=== PATIENT | male | born 1960 | race Caucasian/White ===

== ENCOUNTER 2019-04-09 06:11 | Inpatient (IN) | payer OTHER, SELFPAY ==
[2019-04-03 07:30] VITALS: BMI 38.5
[2019-04-09] VITALS (21 sets, daily range): BP systolic 120–181; BP diastolic 59–102; PULSE 77–119; RESP 10–19; TEMP 36.1–37.6; O2SAT 89–97; BMI 37.2
--- NOTE | 2019-04-09 06:00 | DI.RAD.S_ITS ---
PROCEDURE: XR KNEE LT 1TO2V INDICATIONS: Post op total knee TECHNIQUE: 2 view(s) of the knee acquired. COMPARISON: None. FINDINGS: Bones: Patient is status post knee joint arthroplasty. Hardware components are in expected positions. Visualized bony structures are intact. Soft tissues: Overlying postoperative changes are noted. IMPRESSION: Normal alignment after left total knee arthroplasty. Dictated by: Nixon Neville M.D. on 04/09/2019 at 11:03 Approved by: Nixon Neville M.D. on 04/09/2019 at 11:03
[2019-04-09] MEDS: ACETAMINOPHEN 325 MG TABLET 975 MG PO ×2 (06:47→14:09)
[2019-04-09] MEDS: LACTATED RINGERS 1,000 ML 42 ML IV (06:47)
--- NOTE | 2019-04-09 07:43 | PM.PREOP ---
Pre-operative Note Interval Note History & Physical reviewed/Exam performed by Physician: Yes Changes to H&P: No
--- NOTE | 2019-04-09 07:44 | PM.OP.1 ---
Operative Date/Time/Diagnoses Date of procedure: 04/09/19 Time of procedure: 09:25 Pre-op diagnosis: Left knee osteoarthritis Post-op diagnosis: same Procedure & Clinicians Procedure: Left total knee replacement Same procedure as scheduled: Yes Indications: The patient has had progressively worsening left knee pain with radiographic changes consistent with arthritis. Non-operative management has failed and the patient has requested total knee replacement. The risks, benefits and alternatives to surgery were discussed with the patient prior to proceeding. Risks discussed included, but were not limited to, failure to relieve pain, stiffness, infection, nerve damage, deep venous thrombosis, pulmonary embolism, stroke, coma, heart attack, permanent paralysis and , as well as the potential need for eventual revision of the prosthetic. Surgeon: Oscar Lozano Pick Up: Sp [place] Click Yes if Unassisted: No Anesthesia Type: Local Operative Notes Findings: Tricompartmental osteoarthritis, most severe in the lateral compartment. Closure Type: primary Specimen(s): none sent Prosthetic devices, grafts, tissues, transplants, or devices: Implants used in this procedure were manufactured by the [employer] and included the BCS II Journey total knee replacement with a size 7 left Oxinium femoral component, a size 7 left non porous tibial base plate, a 9 mm cross-linked polyethylene tibial insert and a 38 mm oval Mame II patellar component. Applied: implant(s) Estimated Blood Loss (mL): 50 Blood products transfused: none Tourniquet time (min): 55 Procedure in detail: The patient was seen in the pre-operative area, where the left knee was identified as the operative site and this was marked with my initials. The patient received pre-operative antibiotics, and was taken to the operating room and placed on the operative table in the supine position. After satisfactory anesthesia, a multimedia author out? was performed. The left leg was encircled with a tourniquet about the proximal thigh, and the leg was prepared from the toes to the tourniquet with ChloroPrep in the usual fashion and draped through sterile drapes. The leg was elevated and exsanguinated with Eschmark bandage and the tourniquet inflated to 250 mmHg pressure. The knee was approached through an approximately 18 cm incision centered over the patella and carried into the knee through a medial parapatellar arthrotomy. The anterior osteophytes and soft tissues were removed. The rotational landmarks of [place]'s line and the transepicondylar axis were marked on the femur with electrocautery, and intramedullary guide holes for the femur and tibia were created. The distal femoral cut was made in 6 degrees of valgus using the intramedullary guide at the primary cut setting. The proximal tibial cut was then made using the intramedullary guide, taking 9 mm of bone off the less involved side. The extension gap was checked and the rotation of the femoral component confirmed with the gap balancing blocks. The anterior, posterior and chamfer cuts were then made. The posterior osteophytes and soft tissues were then removed. The posterior capsule was injected with part of a mixture of 60 ml 0.25% Marcaine mixed with 20 ml Exparel and 4 mg of morphine for post-operative pain control. The remainder of this mixture was injected into the capsule and subcutaneous tissues during cement curing. The tibia was prepared with the rotation set by an extra medullary guide. Trial tibial and femoral components were then placed and the intercondylar notch cut through the femoral trial. Range of motion was 0-135 degrees, with good stability throughout the range. The patella was then cut to accommodate the patellar prosthetic. There was no need for a lateral release. The trials were then removed, and the femoral hole plugged with a bone plug. The bone was prepared with pulsatile lavage, and dried with a sponge. Cement was applied and the final prosthetics placed. Excess cement was removed during and after cement curing. After confirming there was no extruded cement posteriorly, the final tibial insert was placed. The knee was copiously irrigated and the tourniquet deflated. Hemostasis was obtained. The capsule was closed with interrupted # 2 polyester sutures. The subcutaneous layer was closed with 3-0 Vicryl, and the skin with a running 3-0 V-Lock suture and SteriStrips. An Aquacel Ag dressing was applied and the patient was taken to recovery having tolerated the procedure well. Complications: none Post-operative Condition: stable Disposition: PACU Plan for aftercare: The patient will be maintained on a standard total knee replacement protocol with weight bearing as tolerated. The patient will receive aspirin and sequential compression devices for DVT prophylaxis. The patient will be discharged home when safe for the home environment.
[2019-04-09] MEDS: CEFAZOLIN 2 GM/100 ML FROZ.PIGGY IV (07:48)
--- NOTE | 2019-04-09 08:23 | SUR.OPER ---
Supine on padded OR bed. Pillow under head, arms secured on padded armboards <90 degree abduction. Safety belt across torso. Non-operative leg secured with tape over blanket over lower leg. Operative leg secured in DeMayo/Camacho positioner.
[2019-04-09] MEDS: BUPIVACAINE 0.25% W/ EPI 30 ML VIAL 60 ML INJ (08:30)
[2019-04-09] MEDS: TRANEXAMIC ACID 1,000 MG VIAL 1000 MG INJ ×2 (08:31→09:07)
[2019-04-09] MEDS: MORPHINE 4 MG/ML INJ INJ (08:31)
[2019-04-09] MEDS: BUPIVACAINE LIPOSOME 266 MG/20 ML VIAL INJ (08:31)
[2019-04-09] MEDS: hydrOXYzine pamoate 25 MG CAPSULE PO ×3 (10:21→20:08)
--- NOTE | 2019-04-09 11:03 | SUR.PHASEII ---
Assumed care from Jv. RN. Pt did voice to her that he wanted to stay over night. Dr. Lozano. in surgery. brought in at bedside, supportive. Pt placed on pulse ox- continuous. sats 89% on room air, placed on 2/l nasal cannula.
--- NOTE | 2019-04-09 12:21 | SUR.PHASEII ---
Dr Lozano to pt's bedside, pt now admitted. Attempted to wean off 02 and unable.
[2019-04-09] MEDS: OXYCODONE IR 5 MG TABLET PO (13:01)
[2019-04-09] MEDS: LACTATED RINGERS 1,000 ML 125 ML IV (13:03)
--- NOTE | 2019-04-09 13:42 | PC.NURSE ---
Day Shift- Report rec'd from FANTASMA Moreno in PACU at 1226. Pt arrived to unit room 210 at 1240 via bed. Oriented to call light, keeping pillow below knee not under. ICE pack X3 to left knee. Left knee aquacel dressing intact with 2 scant spot drainage to proximal and distal end of dressing, virginie wrap in place. CMS +, PPP. pt states knee feels slightly numb. On 1.5L NC, O2 sat 93%. After instructed and use of incentive spirometer, O2 sat increased to 98% on 1.5L NC. Bed alarm on, pt instructed to use call light for OOB assist.
[2019-04-09] MEDS: GABAPENTIN 300 MG CAPSULE PO ×2 (14:07→20:08)
--- NOTE | 2019-04-09 15:50 | PT.IIE ---
Current Diagnoses Unilateral primary osteoarthritis, left knee (04/09/19) Surgery Performed Operation Date: 04/09/19 07:45 Actual Procedures p Total Knee Arthroplasty(Left) - Oscar Lozano MD Surgical History (Last Updated 04/03/19 @ 08:19 by Lian Brown RN) H/O left wrist surgery (Acute) H/O vasectomy (Acute) History of ankle surgery (Acute ~1989) History of arthroscopy of left shoulder (Acute ~2003) History of arthroscopy of right shoulder (Acute ~2001) Hx of arthroscopy of left knee (Acute) Hx of arthroscopy of right knee (Acute) Hx of laminectomy (Acute ~2015) Hx of prostate biopsy (Acute) Hx of rhinoplasty (Acute) Hx of right knee surgery (Acute ~1975) Medical History (Last Updated 04/03/19 @ 08:19 by Lian Brown RN) Arthritis (Acute) Asthma (Acute) Enlarged prostate (Acute) Hearing impaired (Acute) HTN (hypertension) (Acute) Kidney stones (Acute) Osteoarthritis (Acute) Pneumonia (Acute) Physical Therapy Inpatient Evaluation/Re-Eval M1 PT/OT-IP Prior Functional Status Start: 04/09/19 17:19 Freq: NEEDED Status: Active Protocol: Document 04/09/19 15:50 AB (Rec: 04/09/19 17:47 AB [id number]) Medical Review Prior Functional Status Medical History Reviewed Yes Communication able to make needs known Mobility and Gait pt stated that he is independent with all mobilities and ambulation without AD Social History Household Members spouse,children Living Arrangements House Number of Floors (Floors) Two Floors Number of Stairs To Enter/Railing? 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 PT-IP Current Condition Start: 04/09/19 17:19 Freq: NEEDED Status: Active Protocol: Document 04/09/19 15:50 AB (Rec: 04/09/19 17:47 AB [id number]) Physical Therapy Current Condition Current Condition Evaluation Date 04/09/19 Treatment Diagnosis s/p L TKA; difficulty in walking Onset Date 04/09/2019 Weight Bearing Status Weight Bearing Status Weight Bear as Tolerated Allowed Weight Bearing Amount (enter % WBAT LLE or #) (%) M3 PT-IP Subjective Start: 04/09/19 17:19 Freq: NEEDED Status: Active Protocol: Document 04/09/19 15:50 AB (Rec: 04/09/19 17:47 AB [id number]) Subjective Physical Therapy Visit Type Type Initial Evaluation Visit Start Time 15:50 Visit Stop Time 16:27 Total Visit Minutes 37 Number of DIAMOND SORTER Visits 0 Physical Therapy Visit Comments Patient Comments pt agreeable to do PT Therapy Pain Assessment Pain When Pain Assessed At Rest Pain Present Pain Present Pain Reported Location left knee Intensity 8 Scale Used Numeric (1 - 10) Pain Management Techniques Re-positioning,Timing of Activity with Medications M4 PT-IP Mobility and Gait Start: 04/09/19 17:19 Freq: NEEDED Status: Active Protocol: Document 04/09/19 15:50 AB (Rec: 04/09/19 17:47 [id number]) PT-Bed Mobility Assessment Sit to Supine Sit to Supine Moderate Assistance,1 Person Assistance PT-Transfer Assessment Sit to and From Stand Sit to and from Stand Minimal Assistance,1 Person Assistance,Use of Upper Extremities Equipment Transfer Assistive Device Gait Belt,Front Wheeled Walker Orthotic/Prosthetic Devices or Brace: Yes Transfers Transfer Destination Bed,Chair,Toilet Transfer Technique ambulated using FWW Transfer Ability Level of Assist Minimal Assistance,1 Person Assistance,Use of Upper Extremities Comments Mobility Comments pt sitting on chair and agreeable to do PT. Checked BP: 163/112. informed nurse. pt requested to use the toilet first before getting back to bed. pt completed sit to stand min A and ambulated to the toilet using FWW ~ 20 ft min A and cues. pt was able to maintain standing using FWW for support CGA while using the toilet. pt ambulated towards the bed using FWW min A and cues. completed sit to supine mod A to elevate LLE up to bed. positioned pt in bed. call light and table placed within reach. Left pt with spouse in room. BP checked: 160/102. nurse informed. Gait Assessment Gait Gait Assistance Required: Minimum Assistance Distance (Feet) 20 Able to Maintain Weight Bearing Status Yes During Gait Assistive Devices Assistive Device Gait Belt,Front Wheeled Walker Orthotic/Prosthetic Devices or Brace: No Gait Deviations General Gait Pattern Antalgic,Decreased Stride Length,Decreased Feet Clearance Factors Limiting Gait Function Factors Limiting Gait Function Decreased Activity Tolerance, Decreased Strength,Limited Range of Motion,Pain,Poor Balance,Poor Safety Awareness Comments Gait Comments pls refer to mobility section for details PT-Balance Assessment Sitting Balance and Reactions Static Sitting Balance Ability Good Dynamic Sitting Balance Ability Good Standing Balance and Reactions Static Standing Balance Ability Fair Dynamic Standing Balance Ability Fair Device Used FWW M5 PT-IP Objective Assessments Start: 04/09/19 17:19 Freq: NEEDED Status: Active Protocol: Document 04/09/19 15:50 AB (Rec: 04/09/19 17:47 AB [id number]) Orientation Orientation/Cognition Level of Alertness Alert Orientation Name,Place,Situation Safety Awareness Decreased Safety Awareness Memory Description Short Term Impaired Gross Range of Motion Lower Extremity ROM Assessment Left Impaired Impairments L knee flexion: ~ 40 deg Strength Lower Extremity Strength Assessment Left Impaired Hip 3-/5 Knee 3-/5 Sensation Assessment Sensation Gross Sensation WNL Muscle Tone Muscle Tone WNL Yes M6 PT-IP Treatment Start: 04/09/19 17:19 Freq: NEEDED Status: Active Protocol: Document 04/09/19 15:50 AB (Rec: 04/09/19 17:47 AB [id number]) Physical Therapy Treatment Exercises Exercises Heel Slides Education Education Provided Precautions,Weight Bearing Status,Post-Op Packet,Safety M7 PT-IP Assessment and Plan Start: 04/09/19 17:19 Freq: NEEDED Status: Active Protocol: Document 04/09/19 15:50 AB (Rec: 04/09/19 17:47 AB [id number]) PT Summary Assessment and Plan Potential Rehabilitation Potential Good Status of Condition at Evaluation Evolving Summary Impairments Pain,ROM,Strength,Balance, Coordination,Sensation,Tone, Cognition,Bed Mobility, Transfers,Gait,Activity Tolerance Assessment Summary pt requiring min A with ambulation using FWW but unable to tolerate much with c /o increase knee pain and increase in BP. pt will likely progress during hospital stay. caregiver training will be conducted when appropriate as well as stair climbing training. will continue to assess pt's progress. Goals Bed Mobility Goal Standby Assistance Transfer Goal Standby Assistance,Front Wheeled Walker Gait Goal Standby Assistance,Front Wheel Walker Gait Distance 200 Other Goals up/down 6 steps R rail ascending; up/down 2 steps without rails using SPC CGA. Days to Meet Goals 5 Frequency of Treatment Frequency Of Treatment Twice a Day Treatment Plan Physical Therapy Treatment Plan Bed Mobility Training,Transfer Training,Gait Training, Therapeutic Exercise,Balance Retraining,Post Op Education, Discharge Planning,Hot or Cold Pack,Neuromuscular Re-ed, Coordination Retraining,Manual Therapy Other Recommendations and Next Treatment ambulation, caregiver training Focus , stair climbing training Recommendations To Nursing Amount of Assist Needed 1 Person Assist Discharge Recommendations PT Discharge Recommendations Home with Assistance, Outpatient PT Transportation Needs at Discharge Private Vehicle
[2019-04-09] MEDS: OXYCODONE IR 5 MG TABLET 10 MG PO ×3 (15:54→22:31)
[2019-04-09] MEDS: TAMSULOSIN 0.4 MG CAPSULE PO (15:57)
[2019-04-09] MEDS: ASPIRIN EC 81 MG TABLET PO (20:07)
[2019-04-09] MEDS: METOPROLOL IR 25 MG TABLET PO (20:08)
[2019-04-09] MEDS: DOCUSATE 100 MG CAPSULE PO (20:08)
--- NOTE | 2019-04-09 23:46 | PC.NURSE ---
Evening notes: Hypertension continues tonight, BP's 160/102, 181/95 & 156/83. HR still tachycardic at 110-115, rhythm regular. HR increases to 125 bpm when he is active or ambulating. RA oxygen 96%, using IS to 3500. I notified Dr Coats of continued HTN and tachycardia, he ordered me to give one time dose of Metoprolol 25 mg which I did. Patient reports good pain relief after increasing oxycodone to 10 mg with vistaril 25 mg, able to sleep intermittently. Continues to report most of his pain to his left hip, ice packs applied to left knee and left hip. Aquacel/alexandra wrap remains CDI except for two small spots of shadow drainage to proximal end of drsg. Pt ambulating to BR with mostly just SBA, good use of 4ww, needs few cues, patient with good mobility. Since I medicated him with Flomax he reports no problems voiding, voiding 400-650 ml at-a-time. Later this evening he reported feeling of swelling saying my leg is really getting big. Leg appears slightly swollen. After re-assessing I found that alexandra wrap looked tight and making indention to proximal calf. I removed ALEXANDRA & reapplied it & he reported immediate relief. CMS intact, denies numbness or tingling to extremities. Fall precautions in place, alarm active for safety. spending night on window bench.
[2019-04-10] MEDS: hydrOXYzine pamoate 25 MG CAPSULE PO (00:41)
[2019-04-10] MEDS: OXYCODONE IR 5 MG TABLET 10 MG PO ×3 (01:57→09:01)
[2019-04-10 04:00] VITALS: BP 139/93; PULSE 102; RESP 18; TEMP 36.6; O2SAT 92
[2019-04-10 06:18] LABS: Hematocrit 40.3 % (41-53); Hemoglobin 13.9 g/dL (13.5-17.5)
--- NOTE | 2019-04-10 06:34 | P.DS_ITS ---
History of Present Illness History of Present Illness Date Patient Seen: 04/10/19 Time Patient Seen: 06:34 Chief complaint: Left Total Knee Arthroplasty Narrative: The history and physical are contained in the chart previously completed note. Please refer to that note for this information. Discharge Providers Provider Date of admission: 04/09/19 06:11 Discharge Date: 04/10/19 Consults: 04/09/19 12:42 Consult to Discharge Planning Routine Comment: Consult to Physical Therapy Evaluate & Treat Comment: Physician Instructions: postop TKA protocol Discharge provider: Oscar Lozano MD Summary Hospital Course Discharge Diagnosis: 1. Osteoarthritis of the left knee 2. Mild post hemorrhagic anemia Hospital Course: The patient was admitted to the hospital and taken directly to the operating room on April 09, 2019. He underwent a left total knee replacement. His initial plan had been to be discharged on the day of surgery however he had significant left hip discomfort which has slowly improved. At the time of this dictation on postoperative day 1 plan is for him to do physical therapy and likely be discharged later today. Status at Discharge Cognitive/behavioral status at discharge: oriented Functional status at discharge: uses cane/walker Overall status at discharge: patient is progressing back to baseline Time Spent with Patient Time spent: Less than 30 minutes Exam Vital Signs (past 8 hours): - 04/09/19 23:00 04/10/19 04:00 Temperature 99.7 F H 97.9 F Pulse Rate 95 H 102 H Respiratory Rate 18 18 Blood Pressure 131/89 139/93 H Pulse Oximetry 93 92 Oxygen Delivery Method Room Air Oxygen Flow Rate 0 Narrative Exam Narrative: Left knee wound is dressed with no drainage on the bandage. Calf is soft. Light touch and motion are intact in left lower extremity. There is no pain of the left hip with logroll or palpation. Objective Labs Result Diagrams: 04/10/19 05:50 Labs: Laboratory Results - last 24 hr 04/10/19 05:50 Hgb 13.9 Hct 40.3 L Discharge Plan Discharge Plan Patient Disposition: Home Discharge orders & Medications Prescriptions: New acetaminophen 325 mg Tablet 975 mg PO Q8H PRN (Reason: Pain, Mild (1-3)) 30 Days RF: 0 aspirin 81 mg Tablet,Delayed Release (Dr/Ec) 81 mg PO BID Qty: 84 RF: 0 oxycodone 5 mg Tablet 5 mg PO Q4HR PRN (Reason: Pain, Moderate (4-6)) Qty: 40 RF: 0 hydroxyzine pamoate 25 mg Capsule 25 mg PO Q4HR PRN (Reason: Nausea) Qty: 40 RF: 0 Continued meloxicam 15 mg Tablet 15 mg PO DAILY RF: 0 tamsulosin [Flomax] 0.4 mg Capsule 0.4 mg PO BID RF: 0 gabapentin 300 mg Capsule 300 mg PO TID RF: 0 Follow up/Referrals: Oscar Lozano MD [Physician] - 2 Weeks Discharge Health Status Multidrug resistant organism: No MDRO Diet/Activity/Treatments Diet: Diet as Tolerated and Regular Activity: You may bear weight as tolerated on your left leg. Cold/Heat Therapy: Apply ice for 15 minutes every hour as needed to the left k nee for pain control. Skin/Wound/Dressing Care Report to your healthcare provider any signs of infection, such as:: chills, fever, night sweats, increased pain, unusual drainage and unusual redness Dressing: You may remove the Naman wrap from your knee 3 days after surgery. You may shower after taking the Naman wrap off. Leave the deeper dressing in place until follow-up. If the central strip of the deeper dressing becomes saturated with either water or blood please call the office to have it changed. Visit Report/Discharge Packet Instructions: DI for Knee Replacement, How to Prevent Falls, DI for Postoperative Pain, DI for Prescription Opioid Use Stand Alone Forms: Surgery Discharge Visit Report Forms: Patient Portal/API, Stroke Signs & Symptoms Quality VTE Deep Vein Thrombosis/Pulmonary Embolism Present on Admission: No
[2019-04-10 08:00] VITALS: BP 155/85; PULSE 110; RESP 16; TEMP 37.2; O2SAT 93
[2019-04-10] MEDS: ASPIRIN EC 81 MG TABLET PO (08:33)
[2019-04-10] MEDS: TAMSULOSIN 0.4 MG CAPSULE PO (08:33)
[2019-04-10] MEDS: polyethylene glycoL 3350 17 GM POWD.PACK PO (08:34)
[2019-04-10] MEDS: MELOXICAM 7.5 MG TABLET 15 MG PO (08:34)
[2019-04-10] MEDS: DOCUSATE 100 MG CAPSULE PO (08:34)
[2019-04-10] MEDS: GABAPENTIN 300 MG CAPSULE PO (08:34)
--- NOTE | 2019-04-10 11:01 | PC.NURSE ---
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
--- NOTE | 2019-04-10 11:29 | CM.DANOTE ---
DCP/Assessment: Reviewed chart. Patient is a 58yr old male admitted to [facility] for left TKA performed on 04-09-19. No PCP listed. Primary payor is 1)[facility] [employer]. Attempted to meet with patient this AM to discuss role of d/c town planner. Patient occupied with nursing assessment at time of visit. Therapy evaluation has been completed and recommendation is home. Spoke with RN whom reports no anticipated d/c planning needs. Patient discharging this AM after therapy session. P: Home today. ERENDIRA Martin Discharge Planning/Care Management CM Discharge Assessment Start: 04/10/19 11:23 Freq: Status: Active Protocol: Document 04/10/19 11:23 KJS (Rec: 04/10/19 11:29 KJS [id number]) Discharge Planning Assessment Assigned Therapeutic Riding Instructor ERENDIRA Martin Contact Information Valorie Magallanes # [phone] Advance Directives? Yes Advance Directives on File No History Provided By Patient,Medical Record Prior Living Arrangements House Household Members spouse,children Type of transporation used prior to Drives own vehicle admit Independent with ADL's Yes Is patient alert and oriented? Yes Caregiver for Another No Patient/Family Preference OP PT Therapy Barriers to Discharge No Discharge Plan Home Transportation Arrangement Family to provide transport home. Referrals Initiated None needed Whiteboard Updated in Patient Room with No name and ext. # of Therapeutic Riding Instructor Review Status In Process Next Review Type Continued Stay Review Pre-Anesthesia Assessment Start: 04/03/19 07:30 Freq: Status: Active Protocol: Document 04/03/19 07:30 CAB (Rec: 04/03/19 08:36 CAB [id number]) Pre-Anesthesia Assessment Preferred Name Lamont or Jas Patient Information Reviewed Via Phone Assessment Assessment Completed With Patient Comment Completed per pt, Surgeon has them, not available at time of assess Primary Care Provider Delilah Smith Seen Specialist in Last 12 Months Yes Specialist Seen Orthopedist,Urologist Primary Language Occitan Die Reamer Required No Height 179.07 cm Weight 123.377 kg Body Mass Index (BMI) 38.5 Hearing Ability Normal Visual Assist Contacts,Glasses Dentition Type Teeth, Natural Present Barriers to Learning None Other Aids No Hx Anesthesia Reactions No: Wants the least amount Hx Family Anesthesia Reaction No Hx Malignant Hyperthermia No Hx Blood Transfusions No Anesthesia Review Requested No alcohol intake current alcohol intake frequency a few times a month Smoking Status Never smoker Substance Use Type does not use Pain Present Pain Reported Musculoskeletal Symptoms Abnormal Gait,Back Pain, Difficulty Walking,Joint Pain, Muscle Cramps History of Falling (Recent or History of No ) Patient is completely paralyzed or No completely immobile Mental Status Oriented to own ability Is patient on oxygen? No Does patient have GENAO/SOB No Hx Sleep Apnea No Currently Taking a Beta Aranza No Can You Climb a Flight of Stairs Without Yes SOB Hx Chest Pain No Hx SOB No Hx Syncope or Dizziness No Anti-Coagulant Therapy No Has a Hang Gliding Instructor No Cardiac Testing No Hx Pacemaker/ICD No Pacemaker Rep Required? 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 Marital Status Lives With spouse Prior Living Arrangements House Number of Floors (Floors) 3 or More Floors Support System Child/Children,Spouse Does the Patient Have Assistance After Yes Surgery Patient Discharge Plan Description Return Home Comment Pt advised overnight length of stay per surgeon Feels Safe in Current Environment Yes Been Physically Hurt or Threatened By a No Person in Current Environment Do you have thoughts of harming yourself None or others? Are you currently considering suicide? No Do you have a plan to hurt yourself or No Plan others? Do You Have Any Spiritual Beliefs That No May Affect Your HC Choices? Do You Have Any Cultural Practices That No May Affect Your HC Choices? Spiritual Referral None Comment Baptism Who Can We Speak to About Patient's Care Family, friends Identifying Code for Release of Patient Declines to issue Information Health Care Proxy/Next of Kin Valorie () Health Care Proxy Emergency Contact Name Valorie () Jesus (son) Emergency Contact Phone Number Valorie: [phone] Jesus: [phone] Advance Directives? Yes Advance Directives on File No Requested Patient Bring Advanced Yes Directives DOS Power of Search Manager Yes Power of Search Manager Name Valorie () Power of Search Manager PAC Instructions Durable medical equipment, Medications to take/avoid, Nasal antibiotic,No ETOH/ petroleum product on skin DOS, NPO,Post-op transportation,Pre -surgical wash,Sensory aids, Sturdy shoes/comfortable clothes,Do not bring valuables and remove jewelry
--- NOTE | 2019-04-10 16:11 | PT.IPTN ---
Current Diagnoses Unilateral primary osteoarthritis, left knee (04/09/19) Surgery Performed Operation Date: 04/09/19 07:45 Actual Procedures p Total Knee Arthroplasty(Left) - Oscar Lozano MD Physical Therapy Treatment Note M2 PT-IP Current Condition Start: 04/09/19 17:19 Freq: NEEDED Status: Discharge Protocol: Document 04/09/19 15:50 AB (Rec: 04/09/19 17:47 AB [id number]) Physical Therapy Current Condition Current Condition Evaluation Date 04/09/19 Treatment Diagnosis s/p L TKA; difficulty in walking Onset Date 04/09/2019 Weight Bearing Status Weight Bearing Status Weight Bear as Tolerated Allowed Weight Bearing Amount (enter % WBAT LLE or #) (%) M3 PT-IP Subjective Start: 04/09/19 17:19 Freq: NEEDED Status: Discharge Protocol: Document 04/10/19 09:26 LJ (Rec: 04/10/19 16:11 LJ [email or web address]) Subjective Physical Therapy Visit Type Type Treatment Note Visit Start Time 09:26 Visit Stop Time 09:44 Total Visit Minutes 18 Number of NIGHT AUDITOR Visits 1 Physical Therapy Visit Comments Patient Comments pt agreeable to do PT Therapy Pain Assessment Pain When Pain Assessed At Rest Pain Present Pain Present Pain Reported M4 PT-IP Mobility and Gait Start: 04/09/19 17:19 Freq: NEEDED Status: Discharge Protocol: Document 04/10/19 09:26 LJ (Rec: 04/10/19 16:11 LJ [email or web address]) PT-Bed Mobility Assessment Supine to Sit Supine to Sit Standby Assistance,Head of Bed Elevated Sit to Supine Sit to Supine Standby Assistance,Head of Bed Elevated Scooting Scooting to Edge of Bed Standby Assistance Scooting Up and Down in Bed Standby Assistance PT-Transfer Assessment Sit to and From Stand Sit to and from Stand Standby Assistance,1 Person Assistance,Use of Upper Extremities Equipment Transfer Assistive Device Gait Belt,Front Wheeled Walker Orthotic/Prosthetic Devices or Brace: Yes Transfers Transfer Destination Bed Transfer Technique ambulated using FWW Transfer Ability Level of Assist Standby Assistance,1 Person Assistance,Use of Upper Extremities Comments Mobility Comments Pt SBA for bed mobility and transfers. Encouraged to move a little slower for better control and balance. Gait Assessment Gait Gait Assistance Required: Standby Assistance Distance (Feet) 120 Able to Maintain Weight Bearing Status Yes During Gait Assistive Devices Assistive Device Gait Belt,Front Wheeled Walker Orthotic/Prosthetic Devices or Brace: No Gait Deviations General Gait Pattern Antalgic,Decreased Feet Clearance,Step-to Gait Factors Limiting Gait Function Factors Limiting Gait Function Decreased Activity Tolerance, Decreased Strength,Limited Range of Motion,Pain,Poor Balance,Poor Safety Awareness Comments Gait Comments Pt ambulated to stairs and back to room. Initial step-to pattern with long stride of LLE. Pt able to correct with cues and demonstration. He kept his body in good posture and within the frame of FWW. Stair Climbing Assessment Evaluation Level of Assist On Stairs Contact Guard Assistance,1 Person Assistance Devices Stair Climbing Assistive Devices Front Wheel Walker,Left Railing,Right Railing Technique/Endurance Stair Climbing Direction Ascend and Descend Stair Climbing Technique Step to Step Number of Steps Climbed 3 Stair Climbing Set # Repetitions (reps) 2 Comments Stair Climbing Comments Pt used FWW to climb platform x2 with SBA Stair climbing with HH assist and right rail ascending then right rail descending. He was able to safely complete stair training M5 PT-IP Objective Assessments Start: 04/09/19 17:19 Freq: NEEDED Status: Discharge Protocol: Document 04/09/19 15:50 AB (Rec: 04/09/19 17:47 AB [id number]) Orientation Orientation/Cognition Level of Alertness Alert Orientation Name,Place,Situation Safety Awareness Decreased Safety Awareness Memory Description Short Term Impaired Gross Range of Motion Lower Extremity ROM Assessment Left Impaired Impairments L knee flexion: ~ 40 deg Strength Lower Extremity Strength Assessment Left Impaired Hip 3-/5 Knee 3-/5 Sensation Assessment Sensation Gross Sensation WNL Muscle Tone Muscle Tone WNL Yes M6 PT-IP Treatment Start: 04/09/19 17:19 Freq: NEEDED Status: Discharge Protocol: Document 04/10/19 09:26 LJ (Rec: 04/10/19 16:11 LJ [email or web address]) Physical Therapy Treatment Exercises Exercises Gluteal Sets,Quad Sets,Heel Slides Education Education Provided Safety M7 PT-IP Assessment and Plan Start: 04/09/19 17:19 Freq: NEEDED Status: Discharge Protocol: Document 04/10/19 09:26 LJ (Rec: 04/10/19 16:11 LJ [email or web address]) PT Summary Assessment and Plan Potential Rehabilitation Potential Good Status of Condition at Evaluation Evolving Summary Impairments Pain,ROM,Strength,Balance, Coordination,Sensation,Tone, Cognition,Bed Mobility, Transfers,Gait,Activity Tolerance Assessment Summary Pt required SBA with all mobility and gait. HH assist on stairs and SBA with cueing on platform. Pt uses FWW accurately but needs cueing for gait pattern. Able to correct with cues. Pt has met stair training goals. present during all treatment. Pt states his son, who is a PT , will be meeting him at his house, along with his other son, to assist the pt when arriving home. Goals Bed Mobility Goal Standby Assistance Transfer Goal Standby Assistance,Front Wheeled Walker Gait Goal Standby Assistance,Front Wheel Walker Gait Distance 200 Other Goals up/down 6 steps R rail ascending; up/down 2 steps without rails using SPC CGA. Days to Meet Goals 5 Frequency of Treatment Frequency Of Treatment Twice a Day Treatment Plan Physical Therapy Treatment Plan Bed Mobility Training,Transfer Training,Gait Training, Therapeutic Exercise,Balance Retraining,Post Op Education, Discharge Planning,Hot or Cold Pack,Neuromuscular Re-ed, Coordination Retraining,Manual Therapy Other Recommendations and Next Treatment ambulation, caregiver training Focus , stair climbing training Recommendations To Nursing Amount of Assist Needed 1 Person Assist Discharge Recommendations PT Discharge Recommendations Home with Assistance, Outpatient PT
== END 2019-04-10 11:30 | disposition home or self-care (01) | DRG 470 ==
PROVIDERS: Admitting Provider Orthopaedic Surgery; Referring Provider Orthopaedic Surgery; Visit Provider Orthopaedic Surgery
PROC: 0SRD0JZ Replacement of Left Knee Joint with Synthetic Substitute, Open Approach (ICD-10-PCS; CPT 27447; principal; 2019-04-09 07:45)
DX: M17.12 Unilateral primary osteoarthritis, left knee (principal); M23.8X1 Other internal derangements of right knee; E66.9 Obesity, unspecified; N40.0 Benign prostatic hyperplasia without lower urinary tract symptoms; J45.998 Other asthma; Z68.37 Body mass index [BMI] 37.0-37.9, adult
CPT/HCPCS: 36415; 73560; 85014; 85018; 97116; 97162; C1776; C9290; J0690; J1100; J1170; J2250; J2270; J2405; J2704; J3010